=== PATIENT | male | born 1940 | race Caucasian/White ===

== ENCOUNTER → 2018-07-22 | Outpatient (CLI) | payer MEDICARE, OTHER ==
[~2018-07-22] MED LIST: ADDERALL5 MG PO; ALAVERT10 M1 PO; AMBIEN 5MG TABLE5 MG PO; ANTIVERT 25MG25 MG PO; ASPIRIN 32325 MG/TAB PO; ASPIRIN 81M81 MG/TA2 PO; B-121000 MCG PO; CEFTIN250 MG PO; CELEXA10 MG PO; CEPHALEXIN500 M1 PO; CIPRO 500MG TA500 MG PO; CLARITIN 1010 MG/TAB PO; COZAAR 25MG25 MG/TAB PO; COZAAR 50MG50 MG/TAB PO; COZAAR100 MG PO; DILAUDID 2MG TAB2 MG PO; DOLOPHINE HCL5 MG PO; ECOTRIN325 MG PO; FLEXERIL 1010 MG/TAB PO; FOLIC ACID; FOLIC ACID 11 MG/TA1 PO; FORTAMET1000 MG PO; GLUCOPHAGE; GLUCOPHAGE1000 MG PO; ISMO 20MG20 MG PO; K-LOR CON; KLOR-CON 1010 MEQ PO; LEVOTHYROXIN0.075 MG PO; LISINOPRIL PO; LISINOPRIL2.5 MG PO; LOPRESSOR 550 MG/TAB PO; LORTAB 5/500 501 TAB PO; METFORMIN HCL1000 MG PO; METHADONE HC5 MG/TAB PO; MINIPRESS 1M1 MG/CAP PO; NAPROSYN500 MG PO; NIACIN 250250 MG/CAP PO; NIACIN500 M3 PO; NIASPAN 500MG500 MG PO; NITROSTAT0.4 MG/TAB SL; NORCO 325 MG-7.1 TAB PO; PERCOCET 5/321 UDTAB PO; POTASSIUM CH2 MEQ/ML PO; PRAVACHOL80 MG PO; PRILOSEC; PRILOSEC 20MG20 MG PO; PYRIDIUM 100MG100 MG PO; ROPINAROLE; ROXICODONE 55 MG/TAB PO; SLO-NIACIN500 MG PO; SYNTHROID0.075 MG/T PO; TOPROL XL50 MG PO; TYLENOL 325MG325 MG PO; VERAPAMIL 440 MG/TAB PO; VITAMIN B12 PO; ZOCOR40 MG PO; ZOCOR80 MG PO; [UNRECOGNIZED DRUG - OTHER]; [UNRECOGNIZED DRUG - OTHER]; [UNRECOGNIZED DRUG - OTHER]; [UNRECOGNIZED DRUG - OTHER] PO; [UNRECOGNIZED DRUG - REMARK]
== END ==
LOC: COL.RAD 08:00
DX: Z01.818 Encounter for other preprocedural examination (principal); E11.9 Type 2 diabetes mellitus without complications; K56.41 Fecal impaction; R10.9 Unspecified abdominal pain; Z90.49 Acquired absence of other specified parts of digestive tract